=== PATIENT | male | born 1955 | race Caucasian/White ===

== ENCOUNTER 2022-09-10 11:46 | Outpatient (OUT) | payer OTHER, SELFPAY ==
--- NOTE | 2022-09-10 12:33 | ECG_ITS ---
[facility] Test Date: 2022-09-10 Pat Name: Arnoldo Jenkins Department: Room: - Gender: Male Labor Relations Director: : 1955 Requested By: NAYANA BOYD Order Number: [id number] Reading MD: BETHANY ALVARADO Measurements Intervals [place] Rate: 71 P: 14 [place]: 163 QRS: 21 QRSD: 105 T: 45 QT: 369 QTc: 402 Interpretive Statements SINUS RHYTHM No previous ECG available for comparison Electronically Signed On 09-11-2022 7:05:04 EDT by BETHANY ALVARADO
== END 2022-09-10 11:47 | disposition home or self-care (01) ==
LOC: PST 11:52
PROVIDERS: Visit Provider Surgery
DX: Z01.810 Encounter for preprocedural cardiovascular examination (principal); D17.1 Benign lipomatous neoplasm of skin and subcutaneous tissue of trunk; L72.0 Epidermal cyst
CPT/HCPCS: 93005

== ENCOUNTER 2022-09-24 10:27 | Day surgery (SDC) | payer OTHER, SELFPAY ==
[2022-09-10 12:58] VITALS: BP 147/88; PULSE 74; RESP 16; TEMP 36.5; O2SAT 96; BMI 27.8
[2022-09-24] VITALS (8 sets, daily range): BP systolic 116–140; BP diastolic 75–88; PULSE 68–79; RESP 12–22; TEMP 36.2–36.8; O2SAT 92–97; BMI 27.4
--- NOTE | 2022-09-24 | OP_ITS ---
OPERATION DATE: ??09/24/2022 PREOPERATIVE DIAGNOSIS:? Enlarging lipoma left upper back, enlarging cyst right posterior neck. POSTOPERATIVE DIAGNOSIS:? Enlarging lipoma left upper back, enlarging cyst right posterior neck. PROCEDURE:? Excisional biopsy enlarging epidermal cyst right neck and enlarging lipoma left upper back. SURGEON:? Anders Herrera M.D. ANESTHESIA:? General endotracheal. ESTIMATED BLOOD LOSS:? Less than 5 mL. INDICATIONS AND CONSENT:? Patient is a 67-year-old male with a history of an enlarging epidermal cyst of the right neck as well as an enlarging lipoma of the left upper back.? Indications, risks, benefits, alternatives of proceeding with excisional biopsy of these lesions under general anesthesia were explained extensively to the patient, including the risks of bleeding, infection, scarring, pain, recurrence, need for further surgery, anesthetic complications.? All of his questions were answered.? Informed consent was obtained. PROCEDURE:? Patient brought to the operating room and placed in the supine position.? General anesthesia was induced.? He was then placed in the left lateral decubitus position and appropriately padded and monitored.? He was prepped and draped in the usual sterile fashion.? An incision was made over the right neck epidermal cyst, in the area of the skin crease and carried down through subcutaneous tissue.? Using sharp dissection, as well as needle tip electrocautery, the chronically scarred, 3 cm epidermal cyst was dissected free and sent off to Pathology.? The wound was irrigated.? There was good hemostasis.? The subcutaneous tissue was re-approximated with interrupted 3-0 suture.? The skin was then closed with 4-0 nylon mattress and simple sutures.? Attention was then turned to the lipoma, where an incision was made over the long axis of the lesion in the area of the skin crease and carried down through subcutaneous tissue using sharp dissection as well as needle tip electrocautery.? A deep 8 cm lipoma was encountered and freed up.? It was scarred.? It was sent off to Pathology.? The wound was irrigated.? The deep subcutaneous tissue was re-approximated with interrupted 3-0 Monocryl suture.? The skin was then closed with 3-0 nylon mattress sutures and 4-0 nylon simple sutures.? Sterile dressings were applied.? Sponge and needle counts were correct x2 per nursing personnel.? Patient tolerated procedure well, was placed back into the supine position, extubated and sent to the recovery area in good condition. CC:? Patient?s family physician CAROLA
[2022-09-24] MEDS: LACTATED RINGER'S SOLUTION 1,000 ML 50 ML IV (10:46)
[2022-09-24] MEDS: BUPIVACAINE HCL 0.5% PF 50 MG/10 ML VIAL 20 ML INJ (11:40)
[2022-09-24] MEDS: BACITRACIN OINTMENT 28.4 GM TUBE 1 APPLIC TOPICAL (11:48)
--- NOTE | 2022-09-24 12:56 | PC.NURSE ---
Both dressings reinforced with tape
== END 2022-09-24 13:43 | disposition home or self-care (01) ==
PROVIDERS: Visit Provider Surgery
PROC: (CPT 11406; principal; 2022-09-24 11:30)
DX: D17.1 Benign lipomatous neoplasm of skin and subcutaneous tissue of trunk (principal); L72.0 Epidermal cyst; E78.00 Pure hypercholesterolemia, unspecified; M54.12 Radiculopathy, cervical region; N40.0 Benign prostatic hyperplasia without lower urinary tract symptoms
CPT/HCPCS: 11406; 11423; 12034; 12042; 88304; J2704